=== PATIENT | male | born 1960 | race Caucasian/White ===

== ENCOUNTER 2018-03-20 07:25 | Inpatient (IN) | payer OTHER ==
[2018-03-20] MEDS ORDERED: Nitroglycerin 0.4 MG Tab.SL SL PRN (07:54)
[2018-03-20] MEDS ORDERED: Aspirin 325 MG Tab.EC PO ONE (07:54)
[2018-03-20] MEDS ORDERED: Aspirin 81 MG Tab.Chew ONE (07:56)
[2018-03-20] MEDS ORDERED: Morphine 4 MG/ML Syringe IVPUSH ONE (07:56)
[2018-03-20] MEDS: Sodium Chloride 0.9% 10 ML Syringe FLUSH PRN ×3 (08:12→09:12)
[2018-03-20 08:15] LABS: CHLORIDE,CL 101 mmol/L (98-107); SODIUM,NA 136 mmol/L (136-145)
--- NOTE | 2018-03-20 08:17 | EDM.PDOC ---
ED HPI GENERAL MEDICAL PROBLEM - General Chief Complaint: General Stated Complaint: chest pain Time Seen by Provider: 03/20/18 07:51 Source of Information: Reports: Patient, Other. Denies: Old Records ([facility] EMR. No paper hospital chart available.) History Limitations: Reports: No Limitations - History of Present Illness INITIAL COMMENTS - FREE TEXT/NARRATIVE: Patient drove himself to the emergency room via private automobile for evaluation of 03/13 retrosternal sharp, pressure type chest pain with symptoms starting after he was drinking some coffee at about 05:30 a.m. this morning. Note that he has not been taking any of his antihypertensive medications for about 1 week secondary to running out of medications with intermittent dizziness since that time. He does complain of possible additional orthopnea and exacerbation of his chest pain with movement of his right leg with history of distant DVT in that leg as below. Chest pain does also radiate into the intrascapular region and left arm with additional dyspnea and nausea without emesis shortly prior to arrival to this facility. The patient denies any heart flutter, dizziness, orthostasis, diaphoresis, paresthesias, recent decreased exercise tolerance, or any other anginal-type symptoms. No recent history of abdominal pain, diarrhea, melena, gross hematochezia, or any food intolerance, including fatty foods, etc., although he does have known chronic heartburn.. No recent history of gross hematuria, colic, or other UTI symptoms. The patient also denies any recent fever, cough, wheezing, dyspnea, etc.. He did not take any medications for symptoms prior to arrival. No history of recent headaches, visual changes, diplopia, change in mental status, or other change in neurological status. Onset: Today, Sudden Onset Date: 03/20/18 Onset Time: 05:30 Duration: Constant Location: Reports: Chest, Back, Upper Extremity, Left, Radiates to (As above). Denies: Face, Neck, Abdomen, Pelvis, Upper Extremity, Right, Lower Extremity, Left, Lower Extremity, Right Quality: Reports: Same as Previous Episode Severity: Severe Improves with: Reports: None Worsens with: Reports: Movement (Leg movement as above) Context: Reports: Other (As above). Denies: Sick Contact Associated Symptoms: Reports: Chest Pain, Nausea/Vomiting (No emesis), Shortness of Breath. Denies: Confusion, Cough, Diaphoresis, Fever/Chills, Headaches, Loss of Appetite, Malaise, Seizure, Syncope, Weakness Treatments ACCOUNT SERVICES ANALYST: Reports: Other (see below) (None) Middle Chest Pain Score (Numeric/FACES): 9 - Related Data Allergies Allergy/AdvReac Type Severity Reaction Status Date / Time nitroglycerin Allergy Rash Verified 03/20/18 07:57 [From Nitrostat] Penicillins Allergy Rash Verified 03/20/18 07:26 Home Meds: Home Meds Lisinopril 20 mg PO DAILY 03/20/18 [History] Metoprolol Tartrate [Lopressor] 50 mg PO BID 03/20/18 [History] Past Medical History HEENT History: Reports: Impaired Vision, Other (See Below). Denies: Allergic Rhinitis, Cataract, Glaucoma, Hard of Hearing, Macular Degeneration, Retinal Detachment Other HEENT History: Patient wears glasses. Nasal fracture requiring surgery at age 9 as below. Cardiovascular History: Reports: Aneurysm, Blood Clots/VTE/DVT, Heart Murmur, Hypertension, Other (See Below). Denies: Afib, Arrhythmia, Bypass, CAD, Heart Failure, High Cholesterol, MD, PTCA, PVD, Stents, Syncope Other Cardiovascular History: Thoracic aneurysm repair with probable aortic valve valvuloplasty as below with no previous history of known coronary artery disease or MD. Right leg postoperative DVT in 2007. Respiratory History: Reports: Intubation, Previous, TB, Other (See Below). Denies: Asthma, Bronchitis, Recurrent, COPD, Intubation, Difficult, PE, Pneumonia, Recurrent, Pneumothorax, Sleep Apnea Other Respiratory History: Positive tuberculosis screen in 2007 with the treatment prior to thoracic surgery as below Gastrointestinal History: Reports: Cholelithiasis, GERD. Denies: Bowel Obstruction, Celiac Disease, Chronic Constipation, Chronic Diarrhea, Colon Polyp , Diverticulosis, Fecal Incontinence, Gastritis, GI Bleed, Hepatitis, Hiatal Hernia, Inflammatory Bowel Disease, Irritable Bowel Syndrome, Jaundice, Pancreatitis, PUD Genitourinary History: Reports: BPH. Denies: Chronic Renal Insuffiency, Dialysis, Renal Calculus, STD, Urinary Incontinence, UTI, Recurrent Musculoskeletal History: Reports: Arthritis, Fracture, Osteoarthritis, Other ( See Below). Denies: Amputation, Back Pain, Chronic, Fibromyalgia, Gout, Neck Pain, Chronic, RA, SLE Other Musculoskeletal History: Right elbow dislocation and fracture secondary to dog attack injury in 2013 with concomitant right rotator cuff injury requiring surgery as below. Neurological History: Reports: Concussion, Head Trauma, Other (See Below). Denies: Alzheimers Disease, Cerebral Aneurysms, CVA, Headaches, Chronic, Migraines, MS, Neuropathy, Diabetic, Neuropathy, Peripheral, Parkinson's, Seizure, TIA, Vertigo Other Neuro History: Concussion the . Psychiatric History: Reports: Addiction, Anxiety, Depression, Other (See Below) . Denies: Abuse, Victim of, ADD, ADHD, Psych Hospitalization(s), PTSD, Suicide Attempt, Suicidal Ideation Other Psychiatric History: History of illicit drug use as below. Endocrine/Metabolic History: Reports: Obesity/BMI 30+. Denies: Diabetes, Type I , Diabetes, Type II, Diabetes Mellitus, Type 3c, Hypothyroidism, IDDM Hematologic History: Reports: Anemia, Blood Transfusion(s), Other (See Below). Denies: Iron Deficiency Other Hematologic History: Blood transfusion at time of thoracic aortic aneurysm repair as below Immunologic History: Reports: None. Denies: AIDS, HIV, SLE Oncologic (Cancer) History: Reports: None. Denies: Basal Cell Carcinoma, Colon , Hodgkin's Lymphoma, Leukemia, Lymphoma, Malignant Melanoma, Non-Hodgkin's Lymphoma, Prostate, Squamous Cell Carcinoma Dermatologic History: Reports: None. Denies: Eczema, Psoriasis - Infectious Disease History Infectious Disease History: Reports: Chicken Pox, Measles, Mumps, TB (As above) . Denies: C-Difficile, Meningitis, Mononucleosis, MRSA, Pertussis (Whooping Cough), Rheumatic Fever, Rubella, Scarlet Fever, Shingles, VRE - Past Surgical History Head Surgeries/Procedures: Reports: None HEENT Surgical History: Reports: Naso-Sinus Surgery, Oral Surgery, Other (See Below). Denies: Adenoidectomy, Cataract Surgery, Eye Surgery, Laser Surgery, LASIK, Myringotomy w Tube(s), Tonsillectomy Other HEENT Surgeries/Procedures: Complete Fleet teeth extraction at age 26 with patient only wearing upper dentures. Nasal surgery secondary to nasal fracture at about age 9. Cardiovascular Surgical History: Reports: Aneurysm, Other (See Below). Denies: AAA Repair, Carotid Endarterectomy, Coronary Artery Bypass, Pacer, Percutaneous Transluminal Angioplasty, Varicose, Vascular Surgery Other Cardiovascular Surgeries/Procedures: Thoracic aortic aneurysm repair with concomitant aortic valvuloplasty in 2007. Respiratory Surgical History: Reports: None. Denies: Thoracentesis GI Surgical History: Reports: Cholecystectomy, Colonoscopy, Other (See Below). Denies: Appendectomy, EGD, Hernia, Inguinal, Hernia Repair/Other, Polypectomy Other GI Surgeries/Procedures: Laparoscopic cholecystectomy in 2010. Colonoscopy in 2011. Male Surgical History: Reports: Circumcision, Other (See Below). Denies: TURP-Transurethral Resection of Prostate, Vasectomy Other Male Surgeries/Procedures: Circumcision as an infant. Endocrine Surgical History: Reports: None. Denies: Thyroid Biopsy Neurological Surgical History: Denies: C-Spine, Discectomy, Laminectomy, Lumbar Spine, Sacral Spine, Spinal Fusion, Thoracic Spine, Vertebroplasty Musculoskeletal Surgical History: Reports: Shoulder Surgery, Other (See Below). Denies: Carpal Tunnel, Ganglion Cyst, Joint Replacement, ORIF Other Musculoskeletal Surgeries/Procedures:: Right rotator cuff repair in 2013. Oncologic Surgical History: Reports: None Dermatological Surgical History: Reports: None - Past Imaging History Past Imaging History: Reports: Angiography (Probable heart catheterization in 2007 at time of the aortic aneurysm repair) Social & Family History - Family History HEENT: Reports: None. Denies: Allergic Rhinitis, Glaucoma, Macular Degeneration , Retinal Detachment Cardiac: Reports: Arrhythmia, Bypass, CAD, Heart Failure, Heart Murmur, Hypertension, MD, Other (See Below). Denies: Afib, Aneurysm, Blood Clots/VTE/ DVT, High Cholesterol, PVD/COD, Syncope Other Cardiac Family History: Mother with cardiomegaly, CHF with fatal MD at age 69. Father with history of PTCA/stent 2 at age 54 with concomitant MD. Brother with pacemaker secondary to bradycardia at age 60. Brother with history of MD 2 initially at age 35 with history of PTCA/stents and subsequent CABG and probable valve replacement at about age 50. Sister with hypertension. Respiratory: Reports: COPD, Other (See Below). Denies: Asthma, PE, Pneumothorax , Sleep Apnea Other Respiratory Family Hisory: Sister with COPD with history of tobacco use. GI: Reports: Hepatitis, Other (See Below). Denies: Celiac Disease, Cholelithiasis, Colon Polyps, GERD, GI bleed, Inflammatory Bowel Disease, Irritable Bowel Syndrome, Pancreatitis, PUD Other GI Family History: Brother with history of hepatitis. : Reports: Diabetic Nephropathy, Dialysis, Renal Disease/Insufficiency, Other (See Below). Denies: Renal Calculus Other Family History: Mother with history of diabetic nephropathy including dialysis. OBGYN: Reports: None. Denies: Endometriosis, Recurrent Spontaneous Musculoskeletal: Reports: Arthritis, Osteoarthritis, Other (See Below). Denies : Gout, RA, SLE Other Musculoskeletal Family History: Parents with arthritis. Neurological: Reports: Neuropathy, Diabetic, Neuropathy, Peripheral, Other (See Below). Denies: Alzheimers Disease, Cerebral Aneurysms, CVA, Dementia, Migraines, MS, Parkinson's, Seizure, TIA Other Neurological Family History: Mother with diabetic neuropathy. Psychiatric: Denies: Abuse, Victim of, ADD, ADHD, Anxiety, Depression, Psych Hospitalization(s), PTSD, Suicide Attempt Endocrine/Metabolic: Reports: Diabetes, type II, IDDM, Other (See Below). Denies: Diabetes, Type I, Diabetes Mellitus, Type 3c, Hypothyroidism Other Endocrine/Metabolic Family History: Brother and mother with IDDM. Hematologic: Reports: None. Denies: Anemia Immunologic: Reports: None. Denies: AIDS, HIV, SLE Dermatologic: Reports: None. Denies: Eczema, Psoriasis Oncologic: Reports: Colon, Other (See Below). Denies: Hodgkin's Lymphoma, Leukemia, Lymphoma, Non-Hodgkin's Lymphoma, Prostate, Skin Other Oncologic Family History: Father with fatal unknown type of intestinal cancer at age 67 - Tobacco Use Smoking Status *Q: Current Every Day Smoker Tobacco Use Within Last Twelve Months: Cigarettes Years of Tobacco use: 45 Packs/Tins Daily: 1 Used Tobacco, but Quit: No Month/Year Tobacco Last Used: Ordered smoking at age 12 with maximum use of 2 packs per day. Smoking Cessation Information Provided To Patient: Yes Second Hand Smoke Exposure: No Second Hand Smoke Education Provided: No - Caffeine Use Caffeine Use: Reports: Coffee (4 cups per day), Soda (12 sodas per day.), Tea (2 3 glasses per week.). Denies: Energy Drinks - Alcohol Use Alcohol Use History: Yes Days Per Week of Alcohol Use: 1 Number of Drinks Per Day: 12 Number of Drinks Per Day Comment: Usually beer. DWI in the with no previous known alcohol abuse, treatment, etc. Total Drinks Per Week: 12 Date of Last Drink: 03/16/18 Alcohol Use in Last Twelve Months: Yes Alcohol Use Frequency: Binges - Recreational Drug Use Recreational Drug Type: Reports: Amphetamines (Speed) (As below), Cocaine (In the early 1999s with no IV drug use.), Marijuana/Hashish (Marijuana abuse as a teenager.), Methamphetamine (Between ages 51 and 55). Denies: Heroin, Inhalants (Glues, Solvents, Aerosols), LSD (Acid), Morphine, Oxycodone - Living Situation & Occupation Living situation: Reports: (1988, 3 children), Alone Occupation: Employed ([employer]) ED ROS GENERAL - Review of Systems Review Of Systems: ROS reveals no pertinent complaints other than HPI. ED EXAM, GENERAL - Physical Exam Exam: See Below Exam Limited By: No Limitations General Appearance: Alert, WD/WN, No Apparent Distress Eye Exam: Bilateral Eye: EOMI, Normal Inspection (Patient wears glasses, no nystagmus), PERRL Ears: Normal External Exam, Normal Canal, Hearing Grossly Normal, Normal TMs Nose: Normal Inspection, Normal Mucosa, No Blood Throat/Mouth: Normal Lips, Normal Oropharynx, Normal Voice, No Airway Compromise. No: Normal Teeth (Complete upper dentures with patient not normally having lower dentures. Complete absent dentition), Dysphagia, Perioral Cyanosis Head: Atraumatic, Normocephalic. No: Facial Swelling, Facial Tenderness, Sinus Tenderness Neck: Supple, Non-Tender, Full Range of Motion, Carotid Bruit (Mild bilateral carotid bruits versus transmitted heart sounds). No: Lymphadenopathy (L), Lymphadenopathy (R), Thyromegaly Respiratory/Chest: No Respiratory Distress, Lungs Clear, Normal Breath Sounds, No Accessory Muscle Use, Chest Non-Tender. No: Pleural Rub, Retractions Cardiovascular: Normal Peripheral Pulses, Regular Rate, Rhythm, No Edema, No Gallop, No JVD, No Rub, Systolic Murmur (2/6 KINSEY of the aortic valve). No: Gallop/S3, Gallop/S4 Peripheral Pulses: 2+: Radial (L), Radial (R), Dorsalis Pedis (L), Dorsalis Pedis (R) GI/Abdominal: Normal Bowel Sounds, Soft, Non-Tender, No Organomegaly, No Distention, No Abnormal Bruit, No Mass, Pelvis Stable, Other (obese). No: Guarding (Male) Exam: Deferred Rectal (Males) Exam: Deferred Back Exam: Normal Inspection, Full Range of Motion. No: CVA Tenderness (L), CVA Tenderness (R), Muscle Spasm Extremities: Normal Inspection, Normal Range of Motion, Non-Tender, No Pedal Edema, Normal Capillary Refill. No: Nadira's Sign Neurological: Alert, Oriented, CN II-XII Intact, Normal Cognition, Normal Gait, Normal Reflexes (Negative Babinski's), No Motor/Sensory Deficits Psychiatric: Anxious (Mild). No: Depressed Mood Skin Exam: Warm, Dry, Intact, Normal Color, No Rash. No: Diaphoretic, Ecchymosis, Lymphangitis, Petechiae, Wound/Incision Lymphatic: No Adenopathy EKG INTERPRETATION EKG Date: 03/20/18 Time: 07:28 Rhythm: NSR Rate (Beats/Min): 81 Tie Siding: Normal (Left versus neutral cardiac axis) P-Wave: Enlarged (Moderate diffuse biphasic P waves with extreme poor R-wave progression in the anterior leads) QRS: Normal (QRS interval 0.09 seconds with T-wave inversion in lead V1) ST-T: Normal QT: Normal GA/PQ Interval: 0.18 seconds Comparison: NA - No Prior EKG EKG Interpretation Comments: 1. No acute ischemic changes 2. Left atrial enlargement 3. Borderline left ventricular hypertrophy by EKG Course - Vital Signs Last Recorded V/S: Last Vital Signs Temp 37.0 C 03/20/18 07:49 Pulse 75 03/20/18 09:53 Resp 23 H 03/20/18 09:53 BP 130/105 H 03/20/18 09:53 Pulse Ox 99 03/20/18 09:53 Vital Signs - 24 hr 03/20/18 03/20/18 03/20/18 07:25 07:42 07:49 Temperature [ 36.8 C Oral] Temperature [ 37.0 C Temporal] Pulse, Peripheral Pulse, 81 82 78 Peripheral [ Right Pulse Oximetry] Respiratory 16 22 H 20 Rate Blood Pressure Blood Pressure 146/119 H 146/119 H 157/103 H [Left Upper Arm ] O2 Sat by Pulse 100 100 100 Oximetry 03/20/18 03/20/18 03/20/18 08:00 08:16 08:27 Temperature [ Oral] Temperature [ Temporal] Pulse, 73 Peripheral Pulse, 82 Peripheral [ Right Pulse Oximetry] Respiratory 16 Rate Blood Pressure 157/117 H Blood Pressure 154/134 H 160/140 H [Left Upper Arm ] O2 Sat by Pulse 99 Oximetry 03/20/18 03/20/18 03/20/18 08:30 08:37 08:55 Temperature [ Oral] Temperature [ Temporal] Pulse, 73 Peripheral Pulse, 73 70 Peripheral [ Right Pulse Oximetry] Respiratory 21 H 17 Rate Blood Pressure 157/117 H 161/98 H Blood Pressure 168/107 H 158/113 H [Left Upper Arm ] O2 Sat by Pulse 100 100 Oximetry 03/20/18 03/20/18 03/20/18 09:15 09:30 09:51 Temperature [ Oral] Temperature [ Temporal] Pulse, Peripheral Pulse, 74 76 72 Peripheral [ Right Pulse Oximetry] Respiratory 17 18 17 Rate Blood Pressure Blood Pressure 169/107 H 147/93 H 174/99 H [Left Upper Arm ] O2 Sat by Pulse 100 99 100 Oximetry 03/20/18 09:53 Temperature [ Oral] Temperature [ Temporal] Pulse, Peripheral Pulse, 75 Peripheral [ Right Pulse Oximetry] Respiratory 23 H Rate Blood Pressure Blood Pressure 130/105 H [Left Upper Arm ] O2 Sat by Pulse 99 Oximetry - Orders/Labs/Meds Orders: Active Orders 24 hr Category Date Time Status EKG Documentation Completion [RC] ASDIRECTED Care 03/20/18 07:52 Active Chest 1V Frontal [CR] Stat Exams 03/20/18 07:52 Taken Chest PE [Ang Chest] [CT] Stat Exams 03/20/18 08:24 Taken Nitroglycerin [Nitrostat] Med 03/20/18 07:54 Active 0.4 mg SL Q5M PRN Sodium Chloride 0.9% [Saline Flush] Med 03/20/18 07:52 Active 10 ml FLUSH ASDIRECTED PRN Obtain Past Medical Record [OM.PC] Routine Oth 03/20/18 08:20 Active Saline Lock Insert [OM.PC] Routine Oth 03/20/18 07:52 Ordered Medication Orders Nitroglycerin (Nitrostat) 0.4 mg SL Q5M PRN PRN Reason: Chest Pain Sodium Chloride (Saline Flush) 10 ml FLUSH ASDIRECTED PRN PRN Reason: Keep Vein Open Last Admin: 03/20/18 09:12 Dose: 10 ml Admin: 03/20/18 08:31 Dose: 10 ml Admin: 03/20/18 08:12 Dose: 10 ml Labs: Laboratory Tests 03/20/18 03/20/18 03/20/18 Range/Units 07:50 07:50 07:55 WBC 6.6 (4.0-10.2) K/uL RBC 5.22 (4.33-5.41) M/uL Hgb 16.7 (13.1-16.8) g/dL Hct 46.3 (39.0-49.0) % MCV 88.7 (84.0-98.0) fL MCH 32.0 (28.2-33.3) pg MCHC 36.1 H (31.7-36.0) g/dL RDW 12.5 (11.2-14.1) % Plt Count 207 (150-350) K/uL Neut % (Auto) 59.1 (45.0-80.0) % Lymph % (Auto) 26.8 (10.0-50.0) % Daggett % (Auto) 10.0 (2.0-14.0) % Eos % (Auto) 3.2 (0.0-5.0) % Baso % (Auto) 0.9 (0.0-2.0) % Neut # (Auto) 3.90 (1.40-7.00) K/uL Lymph # (Auto) 1.77 (0.50-3.50) K/uL Daggett # (Auto) 0.66 (0.00-1.00) K/uL Eos # (Auto) 0.21 (0.00-0.50) K/uL Baso # (Auto) 0.06 (0.00-0.20) K/uL PT (9.8-11.7) SEC INR APTT (22.1-29.8) SEC D-Dimer, Quantitative 468 H (0-400) ng/mL Sodium 136 (136-145) mmol/L Potassium 4.4 (3.5-5.1) mmol/L Chloride 101 (98-107) mmol/L Carbon Dioxide 27.4 (21.0-32.0) mmol/L BUN 8 (7-18) mg/dL Creatinine 0.76 (0.51-1.17) mg/dL Est Cr Clr Drug Dosing 101.25 mL/min Estimated GFR (MDRD) > 60 mL/min Glucose 104 (74-106) mg/dL Lactic Acid (0.4-2.0) mmol/L Calcium 9.2 (8.5-10.1) mg/dL Total Bilirubin 0.9 (0.2-1.0) mg/dL AST 28 (15-37) U/L ALT 33 (12-78) U/L Alkaline Phosphatase 86 (46-116) IU/L Creatine Kinase (26-308) U/L Creatine Kinase Index (0.0-2.5) % CK-MB (CK-2) (0.00-3.60) ng/mL Troponin I 0.000 (0.000-0.056) ng/mL NT-Pro-B Natriuret Pep (0-125) pg/mL Total Protein 7.5 (6.4-8.2) g/dL Albumin 3.7 (3.4-5.0) g/dL TSH, Ultra Sensitive (0.358-3.740) mIU/mL 03/20/18 03/20/18 03/20/18 Range/Units 07:55 07:55 07:55 WBC (4.0-10.2) K/uL RBC (4.33-5.41) M/uL Hgb (13.1-16.8) g/dL Hct (39.0-49.0) % MCV (84.0-98.0) fL MCH (28.2-33.3) pg MCHC (31.7-36.0) g/dL RDW (11.2-14.1) % Plt Count (150-350) K/uL Neut % (Auto) (45.0-80.0) % Lymph % (Auto) (10.0-50.0) % Daggett % (Auto) (2.0-14.0) % Eos % (Auto) (0.0-5.0) % Baso % (Auto) (0.0-2.0) % Neut # (Auto) (1.40-7.00) K/uL Lymph # (Auto) (0.50-3.50) K/uL Daggett # (Auto) (0.00-1.00) K/uL Eos # (Auto) (0.00-0.50) K/uL Baso # (Auto) (0.00-0.20) K/uL PT 9.9 (9.8-11.7) SEC INR 0.9 APTT 25.0 (22.1-29.8) SEC D-Dimer, Quantitative (0-400) ng/mL Sodium (136-145) mmol/L Potassium (3.5-5.1) mmol/L Chloride (98-107) mmol/L Carbon Dioxide (21.0-32.0) mmol/L BUN (7-18) mg/dL Creatinine (0.51-1.17) mg/dL Est Cr Clr Drug Dosing mL/min Estimated GFR (MDRD) mL/min Glucose (74-106) mg/dL Lactic Acid 1.7 (0.4-2.0) mmol/L Calcium (8.5-10.1) mg/dL Total Bilirubin (0.2-1.0) mg/dL AST (15-37) U/L ALT (12-78) U/L Alkaline Phosphatase (46-116) IU/L Creatine Kinase 81 (26-308) U/L Creatine Kinase Index 1.5 (0.0-2.5) % CK-MB (CK-2) 1.20 (0.00-3.60) ng/mL Troponin I (0.000-0.056) ng/mL NT-Pro-B Natriuret Pep 220 H (0-125) pg/mL Total Protein (6.4-8.2) g/dL Albumin (3.4-5.0) g/dL TSH, Ultra Sensitive (0.358-3.740) mIU/mL 03/20/18 Range/Units 07:55 WBC (4.0-10.2) K/uL RBC (4.33-5.41) M/uL Hgb (13.1-16.8) g/dL Hct (39.0-49.0) % MCV (84.0-98.0) fL MCH (28.2-33.3) pg MCHC (31.7-36.0) g/dL RDW (11.2-14.1) % Plt Count (150-350) K/uL Neut % (Auto) (45.0-80.0) % Lymph % (Auto) (10.0-50.0) % Daggett % (Auto) (2.0-14.0) % Eos % (Auto) (0.0-5.0) % Baso % (Auto) (0.0-2.0) % Neut # (Auto) (1.40-7.00) K/uL Lymph # (Auto) (0.50-3.50) K/uL Daggett # (Auto) (0.00-1.00) K/uL Eos # (Auto) (0.00-0.50) K/uL Baso # (Auto) (0.00-0.20) K/uL PT (9.8-11.7) SEC INR APTT (22.1-29.8) SEC D-Dimer, Quantitative (0-400) ng/mL Sodium (136-145) mmol/L Potassium (3.5-5.1) mmol/L Chloride (98-107) mmol/L Carbon Dioxide (21.0-32.0) mmol/L BUN (7-18) mg/dL Creatinine (0.51-1.17) mg/dL Est Cr Clr Drug Dosing mL/min Estimated GFR (MDRD) mL/min Glucose (74-106) mg/dL Lactic Acid (0.4-2.0) mmol/L Calcium (8.5-10.1) mg/dL Total Bilirubin (0.2-1.0) mg/dL AST (15-37) U/L ALT (12-78) U/L Alkaline Phosphatase (46-116) IU/L Creatine Kinase (26-308) U/L Creatine Kinase Index (0.0-2.5) % CK-MB (CK-2) (0.00-3.60) ng/mL Troponin I (0.000-0.056) ng/mL NT-Pro-B Natriuret Pep (0-125) pg/mL Total Protein (6.4-8.2) g/dL Albumin (3.4-5.0) g/dL TSH, Ultra Sensitive 3.521 (0.358-3.740) mIU/mL Meds: Medications Generic Name Dose Route Start Last Admin Trade Name Freq PRN Reason Stop Dose Admin Nitroglycerin 0.4 mg 03/20/18 07:54 Nitrostat SL Q5M PRN Chest Pain Sodium Chloride 10 ml 03/20/18 07:52 03/20/18 09:12 Saline Flush FLUSH 10 ml ASDIRECTED PRN Administration Keep Vein Open Discontinued Medications Generic Name Dose Route Start Last Admin Trade Name Christy PRN Reason Stop Dose Admin Al Hydroxide/Mg Hydroxide 30 ml 03/20/18 09:25 03/20/18 09:42 Gi Cocktail PO 03/20/18 09:26 30 ml ONETIME ONE Administration Aspirin 325 mg 03/20/18 07:54 03/20/18 08:32 Ecotrin PO 03/20/18 07:55 Not Given ONETIME ONE Aspirin Confirm 03/20/18 07:56 03/20/18 08:07 Aspirin Administered 03/20/18 07:57 324 mg Dose Administration 324 mg .ROUTE .STK-MED ONE Enalaprilat 1.25 mg 03/20/18 08:19 03/20/18 08:30 Vasotec Iv IVPUSH 03/20/18 08:20 1.25 mg ONETIME ONE Administration Famotidine 40 mg 03/20/18 09:03 03/20/18 09:12 Pepcid IVPUSH 03/20/18 09:04 40 mg ONETIME ONE Administration Fentanyl 100 mcg 03/20/18 08:35 03/20/18 08:39 Sublimaze IVPUSH 03/20/18 08:36 100 mcg ONETIME ONE Administration Fentanyl 100 mcg 03/20/18 09:23 03/20/18 09:27 Sublimaze IVPUSH 03/20/18 09:24 100 mcg ONETIME ONE Administration Iopamidol 100 ml 03/20/18 09:00 03/20/18 08:55 Isovue-370 (76%) IVPUSH 03/20/18 09:01 100 ml ONETIME ONE Administration Labetalol HCl 10 mg 03/20/18 08:39 03/20/18 08:44 Normodyne IVPUSH 03/20/18 08:40 10 mg ONETIME ONE Administration Protocol Labetalol HCl 10 mg 03/20/18 09:24 03/20/18 09:28 Normodyne IVPUSH 03/20/18 09:25 10 mg ONETIME ONE Administration Protocol Metoprolol Tartrate 2.5 mg 03/20/18 08:19 03/20/18 08:27 Lopressor IVPUSH 03/20/18 08:20 2.5 mg ONETIME ONE Administration Metoprolol Tartrate 25 mg 03/20/18 08:34 03/20/18 08:37 Lopressor PO 03/20/18 08:35 25 mg ONETIME ONE Administration Morphine Sulfate 4 mg 03/20/18 07:56 03/20/18 08:11 Morphine IVPUSH 03/20/18 07:57 4 mg ONETIME ONE Administration Ondansetron HCl 4 mg 03/20/18 08:34 03/20/18 08:39 Zofran IVPUSH 03/20/18 08:35 4 mg ONETIME ONE Administration Pantoprazole Sodium 40 mg 03/20/18 09:25 03/20/18 09:42 Protonix Iv IVPUSH 03/20/18 09:26 40 mg ONETIME ONE Administration Ticagrelor 180 mg 03/20/18 08:20 03/20/18 08:23 Brilinta PO 03/20/18 08:21 180 mg ONETIME ONE Administration - Radiology Interpretation Free Text/Narrative:: monitor worker showed initial sinus rhythm in the 80s with no ectopy or arrhythmia. Heart rate in the 70s to 80s at time of admission. Chest x-ray, portable, shows evidence of mild to moderate cardiomegaly with probable moderate COPD with pulmonary hypertension versus mild centralized CHF. Poor inspiratory film. No pneumothorax or significant pulmonary infiltrates. Somewhat Prominent proximal aortic arch but no direct evidence of aneurysm. Note status post medial sternotomy. Telephone consultation at 09:29 hours with the radiology department at [facility] with preliminary verbal report of CTA of the chest. No significant abnormal findings with no evidence of PE, aortic dissection, etc. CT Results Date: 03/20/18 CT Results Time: 09:29 Departure - Departure Time of Disposition: 10:00 Disposition: Refer to Observation Condition: Fair Clinical Impression: Peptic reflux disease, Tobacco abuse counseling, Mixed anxiety depressive disorder Chest pain Qualifiers: Chest pain type: precordial pain Qualified Code(s): R07.2 - Precordial pain Hypertension Qualifiers: Hypertension type: essential hypertension Qualified Code(s): I10 - Essential ( primary) hypertension Thoracic aortic aneurysm Qualifiers: Presence of rupture: without rupture Qualified Code(s): I71.2 - Thoracic aortic aneurysm, without rupture Osteoarthritis Qualifiers: Osteoarthritis location: multiple joints Osteoarthritis type: primary Qualified Code(s): M15.0 - Primary generalized (osteo)arthritis Aortic valve stenosis Qualifiers: Cardiac valve disease etiology: nonrheumatic Qualified Code(s): I35.0 - Nonrheumatic aortic (valve) stenosis CHF (congestive heart failure) Qualifiers: Heart failure type: unspecified Heart failure chronicity: unspecified Qualified Code(s): I50.9 - Heart failure, unspecified COPD (chronic obstructive pulmonary disease) Qualifiers: COPD type: emphysema Emphysema type: panlobular Qualified Code(s): J43.1 - Panlobular emphysema - Discharge Information *PRESCRIPTION DRUG MONITORING PROGRAM REVIEWED*: Not Applicable *COPY OF PRESCRIPTION DRUG MONITORING REPORT IN PATIENT FELICITY: Not Applicable - Problem List & Annotations (1) Chest pain SNOMED Code(s): 28153805 Code(s): R07.9 - CHEST PAIN, UNSPECIFIED Status: Acute Priority: High Current Visit: No Onset Date: 03/20/18 Annotation/Comment:: Initial evaluation by [facility] physician, Dr. Brewer, with verbal report given to me as I assumed patient care. Note no written documentation by [facility] physician as above. Chest pain protocol initiated on patient's arrival to the emergency room. Note previous distant thoracic aortic aneurysm repair with negative CTA of the chest for PE and/or changes in his thoracic aneurysm repair , including dissection, etc.. Initiate standard rule out MD orders. Pain somewhat difficult to control in the emergency room with multiple medications required as above. Cardiology consultation, hospital transfer, etc. depending on his clinical course. Qualifiers: Chest pain type: precordial pain Qualified Code(s): R07.2 - Precordial pain (2) Hypertension SNOMED Code(s): 21366731 Code(s): I10 - ESSENTIAL (PRIMARY) HYPERTENSION Status: Acute Priority: High Current Visit: No Annotation/Comment:: Borderline hypertensive crisis prior to arrival to this facility with aggressive IV therapy required as above. Blood pressures improved at time of admission. Note medication noncompliance in the last week as above with medication compliance strongly encouraged. No recent illicit drug use, including methamphetamine, etc. Decreased caffeine intake discussed and strongly advised. Qualifiers: Hypertension type: essential hypertension Qualified Code(s): I10 - Essential (primary) hypertension (3) D-dimer, elevated SNOMED Code(s): 237429877 Code(s): R79.89 - OTHER SPECIFIED ABNORMAL FINDINGS OF BLOOD CHEMISTRY Status: Acute Priority: High Current Visit: No Onset Date: 03/20/18 Annotation/Comment:: Mild d-dimer elevation with negative CTA of the chest as above. Venous Doppler studies to be conducted during this hospitalization. Initiate Lovenox with caution secondary to his peptic reflux disease as above. Repeat blood work in the a.m. No direct clinical evidence of DVT with negative Homans sign of the right leg. (4) Aortic valve stenosis SNOMED Code(s): 31441267 Code(s): I35.0 - NONRHEUMATIC AORTIC (VALVE) STENOSIS Status: Chronic Priority: Medium Current Visit: No Annotation/Comment:: Note status post aortic valvuloplasty in 2007 as above. Echocardiogram tomorrow if possible otherwise on an outpatient basis. Qualifiers: Cardiac valve disease etiology: nonrheumatic Qualified Code(s): I35.0 - Nonrheumatic aortic (valve) stenosis (5) CHF (congestive heart failure) SNOMED Code(s): 35888054 Code(s): I50.9 - HEART FAILURE, UNSPECIFIED Status: Acute Priority: Medium Current Visit: No Onset Date: 03/20/18 Annotation/Comment:: Mild BNP elevation and borderline CHF by chest x-ray. Initiate low-dose IV Lasix therapy. Echocardiogram as above. Qualifiers: Heart failure type: unspecified Heart failure chronicity: unspecified Qualified Code(s): I50.9 - Heart failure, unspecified (6) COPD (chronic obstructive pulmonary disease) SNOMED Code(s): 49660489 Code(s): J44.9 - CHRONIC OBSTRUCTIVE PULMONARY DISEASE, UNSPECIFIED Status : Chronic Priority: Medium Current Visit: No Annotation/Comment:: COPD by chest x-ray with history of tobacco use. Consider PFTs once his cardiac status has been determined. Qualifiers: COPD type: emphysema Emphysema type: panlobular Qualified Code(s): J43.1 - Panlobular emphysema (7) Mixed anxiety depressive disorder SNOMED Code(s): 468879876 Code(s): F41.8 - OTHER SPECIFIED ANXIETY DISORDERS Status: Chronic Priority: Medium Current Visit: No Annotation/Comment:: Mild to moderate control based on today's clinical exam. Consider medical therapy depending on clinical course. Note previous history of illicit drug use in moderate current alcohol intake. (8) Osteoarthritis SNOMED Code(s): 261224774 Code(s): M19.90 - UNSPECIFIED OSTEOARTHRITIS, UNSPECIFIED SITE Status: Chronic Priority: Medium Current Visit: No Annotation/Comment:: Stable by patient history with exception of persistent discomfort in hands and right leg. Qualifiers: Osteoarthritis location: multiple joints Osteoarthritis type: primary Qualified Code(s): M15.0 - Primary generalized (osteo)arthritis (9) Peptic reflux disease SNOMED Code(s): 424298365 Code(s): K21.9 - GASTRO-ESOPHAGEAL REFLUX DISEASE WITHOUT ESOPHAGITIS Status: Chronic Priority: Medium Current Visit: No Annotation/Comment:: Aggressive treatment in the emergency room as above. Consider EGD depending on workup for his cardiac disease. H. pylori stool antigen collection during this hospitalization. (10) Thoracic aortic aneurysm SNOMED Code(s): 021669958 Code(s): I71.2 - THORACIC AORTIC ANEURYSM, WITHOUT RUPTURE Status: Chronic Priority: High Current Visit: No Annotation/Comment:: No evidence of rupture by CTA of the chest as above. Qualifiers: Presence of rupture: without rupture Qualified Code(s): I71.2 - Thoracic aortic aneurysm, without rupture (11) Tobacco abuse counseling SNOMED Code(s): 848952560, 049096704, 434330902 Code(s): Z71.6 - TOBACCO ABUSE COUNSELING Status: Chronic Priority: Medium Current Visit: No Annotation/Comment:: Tobacco cessation information to be provided at discharge. Initiate Nicoderm patch during this hospitalization. - Problem List Review Problem List Initiated/Reviewed/Updated: Yes - My Orders Last 24 Hours: My Active Orders 03/20/18 08:20 Obtain Past Medical Record [OM.PC] Routine 03/20/18 08:24 Chest PE [Ang Chest] [CT] Stat - Assessment/Plan Admission H&P: Please use this note as an admission H&P Last 24 Hours: My Active Orders 03/20/18 08:20 Obtain Past Medical Record [OM.PC] Routine 09/17/18 08:24 Chest PE [Ang Chest] [CT] Stat Assessment:: As above Plan: As above. Extensive precautions were given to the patient, who is in agreement with the treatment plan. The patient's condition is stable enough for observation status and general supervision.
[2018-03-20] MEDS ORDERED: Enalaprilat 1.25 MG/ML SDV IVPUSH ONE (08:19)
[2018-03-20] MEDS ORDERED: Metoprolol Tartrate 5 MG/5 ML SDV IVPUSH ONE (08:19)
[2018-03-20] MEDS ORDERED: Ticagrelor 90 MG Tab PO ONE (08:20)
[2018-03-20] MEDS ORDERED: Metoprolol Tartrate 50 MG Tab PO ONE (08:34)
[2018-03-20] MEDS ORDERED: Ondansetron 4 MG/2 ML SDV IVPUSH ONE (08:34)
[2018-03-20] MEDS ORDERED: fentaNYL 100 MCG/2 ML SDV IVPUSH ONE ×2 (08:35→09:23)
[2018-03-20] MEDS ORDERED: Labetalol 20 MG/4 ML Syringe IVPUSH ONE ×2 (08:39→09:24)
[2018-03-20] MEDS ORDERED: Iopamidol 755 Mg/ML 100 ML Bottle IVPUSH ONE (09:00)
[2018-03-20] MEDS ORDERED: Famotidine 20 MG/2 ML SDV IVPUSH ONE (09:03)
[2018-03-20] MEDS ORDERED: Pantoprazole 40 MG Vial IVPUSH ONE (09:25)
[2018-03-20] MEDS ORDERED: GI Cocktail Oral Solution 30 ML PO ONE (09:25)
[2018-03-20] MEDS ORDERED: Acetaminophen 325 MG Tab PO PRN (10:00)
[2018-03-20] MEDS ORDERED: Sodium Chloride 0.9% 10 ML Syringe FLUSH PRN (10:10)
[2018-03-20] MEDS ORDERED: Temazepam 15 MG Cap PO PRN (10:10)
[2018-03-20] MEDS: Nicotine 21 MG/24 Hr Patch TRDERM SCH (10:41)
[2018-03-20] MEDS: Enoxaparin 100 MG/1 ML Syringe SUBCUT SCH ×2 (10:42→21:10)
[2018-03-20] MEDS: Potassium Chloride 20 MEQ Tab.ER PO SCH (10:43)
[2018-03-20] MEDS: Lisinopril 20 MG Tab PO SCH ×2 (10:44→17:32)
[2018-03-20] MEDS: LORazepam 1 MG Tab PO PRN ×2 (11:04→21:10)
[2018-03-20] MEDS ORDERED: methylPREDNISolone Sodium Succinate 125 MG/2 ML SDV IVPUSH ONE (12:41)
[2018-03-20] MEDS ORDERED: diphenhydrAMINE 50 MG/ML SDV IVPUSH ONE (12:41)
[2018-03-20] MEDS ORDERED: Nitroglycerin 0.4 MG Tab.SL SL STA (12:42)
[2018-03-20] MEDS ORDERED: Nitroglycerin/D5W 25 MG/250 ML BOTTLE IV SCH (12:45)
[2018-03-20] MEDS ORDERED: Sodium Chloride 0.9% 1,000 ML IV SCH (12:45)
[2018-03-20] MEDS: Furosemide 40 MG/4 ML VIAL IVPUSH SCH (12:51)
--- NOTE | 2018-03-20 13:05 | PCM.SN ---
- Free Text/Narrative Note: Patient is once again having some moderate breakthrough retrosternal sharp 7/10 chest pressure, which does continue to radiate into the back. Stat repeat EKG at 12:47 PM shows no change from EKG earlier this morning with nonspecific ST changes in lead aVL and possible threatening T-wave inversion in that lead. Note PA interval also somewhat increased at this time to 0.20 seconds representing a borderline first-degree AV block likely secondary to IV metoprolol and Normodyne with additional oral metoprolol given in the emergency room. His physical exam is stable from admission, although somewhat mild progression of his systolic aortic murmur to 2-3/6 at this time. Anxiety component of his symptoms with no improvement with oral dose of Ativan earlier this morning. Various therapeutic options were discussed with the patient, who now does agree to recommended nitroglycerin therapy with premedication with 50 mg IV Benadryl and 125 mg of IV Solu-Medrol. Initial sublingual nitroglycerin with additional immediate initiation of sublingual nitroglycerin infusion initially at 10 mcg/m. 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 His blood pressure has also improved with current medical therapy. Patient did not wish to be transferred to [facility]. Excellent results with sublingual nitroglycerin tablet and subsequent nitroglycerin infusion. Low threshold for cardiology referral with probable Cardiolite stress test on an outpatient basis. Note subcutaneous Lovenox therapy already initiated on admission. Negative cardiac enzymes 2 with additional set to be conducted at about 19:00 hours this evening.
[2018-03-20] MEDS: Metoprolol Tartrate 50 MG Tab PO SCH (17:32)
[2018-03-20] MEDS ORDERED: diphenhydrAMINE 25 MG Cap PO PRN (20:48)
[2018-03-21 07:49] LABS: CHLORIDE,CL 102 mmol/L (98-107); SODIUM,NA 138 mmol/L (136-145)
[2018-03-21] MEDS: Lisinopril 20 MG Tab PO SCH ×2 (08:24→18:55)
[2018-03-21] MEDS: Metoprolol Tartrate 50 MG Tab PO SCH ×2 (08:25→18:54)
[2018-03-21] MEDS: Potassium Chloride 20 MEQ Tab.ER PO SCH (08:25)
[2018-03-21] MEDS: Nicotine 21 MG/24 Hr Patch TRDERM SCH (08:26)
[2018-03-21] MEDS ORDERED: Citalopram 20 MG Tab PO SCH (09:08)
--- NOTE | 2018-03-21 09:14 | PCM.PN ---
- General Info Date of Service: 03/21/18 Functional Status: Reports: Pain Controlled, Tolerating Diet, Ambulating, Urinating. Denies: New Symptoms, Incentive Spirometry Pain Score: 3 - Review of Systems General: Reports: No Symptoms. Denies: Fever, Weakness, Fatigue, Malaise, Chills, Night Sweats, Appetite (Tolerated diet yesterday well and wants to eat breakfast this morning with excellent appetite ) HEENT: Reports: Headaches (Mild secondary to nitroglycerin drip). Denies: Ear Pain, Eye Pain, Post Nasal Drip, Sinus Congestion, Sore Throat, Visual Changes Pulmonary: Reports: No Symptoms. Denies: Shortness of Breath, Pleuritic Chest Pain, Cough, Sputum, Wheezing Cardiovascular: Reports: Chest Pain (Nonspecific persistent 25/04 bilateral anterior chest pain). Denies: Palpitations, Dyspnea on Exertion, Orthopnea, PND , Edema, Lightheadedness Gastrointestinal: Reports: No Symptoms, Other (No bowel movement to this point) . Denies: Abdominal Pain, Constipation, Decreased Appetite, Diarrhea, Difficulty Swallowing, Flatus, Hematochezia, Melena, Nausea, Vomiting Genitourinary: Reports: No Symptoms. Denies: Dysuria, Frequency, Burning, Pain , Urgency, Incontinence, Hematuria, Retention, Flank Pain Musculoskeletal: Reports: No Symptoms. Denies: Neck Pain, Shoulder Pain, Arm Pain, Hand Pain, Back Pain, Leg Pain Skin: Reports: Bruising (Minimal bruising Lovenox injection sites), Pruritis ( Pruritus yesterday evening possibly secondary to nitroglycerin infusion with oral Benadryl taken yesterday evening and no pruritus this morning). Denies: Diaphoresis, Rash Neurological: Reports: Headache. Denies: Confusion, Dizziness, Numbness, Paresthesia, Tingling, Weakness Psychiatric: Reports: Depression (Mild), Anxiety (Moderate). Denies: Confusion , Agitation, Cravings, Hallucinations, Suicidal Ideation, Homicidal Ideation - Patient Data Vitals - Most Recent: Last Vital Signs Temp 36.8 C 03/21/18 04:00 Pulse 94 03/21/18 08:25 Resp 17 03/21/18 04:00 BP 115/72 03/21/18 08:25 Pulse Ox 97 03/21/18 04:00 Vital Signs - 24 hr 03/20/18 03/20/18 03/20/18 09:15 09:30 09:51 Temperature [ Temporal] Pulse, Peripheral Pulse, 74 76 72 Peripheral [ Right Pulse Oximetry] Respiratory 17 18 17 Rate Blood Pressure Blood Pressure 169/107 H 147/93 H 174/99 H [Left Upper Arm ] Blood Pressure [Right Upper Arm] O2 Sat by Pulse 100 99 100 Oximetry 03/20/18 03/20/18 03/20/18 09:53 10:05 10:11 Temperature [ 37.0 C Temporal] Pulse, Peripheral Pulse, 75 74 Peripheral [ Right Pulse Oximetry] Respiratory 23 H 18 Rate Blood Pressure Blood Pressure 130/105 H 147/114 H [Left Upper Arm ] Blood Pressure [Right Upper Arm] O2 Sat by Pulse 99 99 100 Oximetry 03/20/18 03/20/18 03/20/18 10:44 12:26 12:59 Temperature [ Temporal] Pulse, Peripheral Pulse, 71 Peripheral [ Right Pulse Oximetry] Respiratory 16 Rate Blood Pressure 130/105 H 137/96 H Blood Pressure 137/94 H [Left Upper Arm ] Blood Pressure [Right Upper Arm] O2 Sat by Pulse 98 Oximetry 03/20/18 03/20/18 03/20/18 14:00 16:00 17:32 Temperature [ 37.0 C Temporal] Pulse, 76 Peripheral Pulse, 70 76 Peripheral [ Right Pulse Oximetry] Respiratory 16 16 Rate Blood Pressure 113/77 Blood Pressure 117/98 H 113/77 [Left Upper Arm ] Blood Pressure [Right Upper Arm] O2 Sat by Pulse 98 98 Oximetry 03/20/18 03/21/18 03/21/18 20:00 00:00 04:00 Temperature [ 36.9 C 36.9 C 36.8 C Temporal] Pulse, Peripheral Pulse, 80 87 Peripheral [ Right Pulse Oximetry] Respiratory 16 18 17 Rate Blood Pressure Blood Pressure 119/75 [Left Upper Arm ] Blood Pressure 112/76 112/80 [Right Upper Arm] O2 Sat by Pulse 96 98 97 Oximetry 03/21/18 03/21/18 08:24 08:25 Temperature [ Temporal] Pulse, 94 Peripheral Pulse, Peripheral [ Right Pulse Oximetry] Respiratory Rate Blood Pressure 115/72 115/72 Blood Pressure [Left Upper Arm ] Blood Pressure [Right Upper Arm] O2 Sat by Pulse Oximetry Weight - Most Recent: 91.898 kg I&O - Last 24 Hours: Intake & Output 03/20/18 03/21/18 03/21/18 22:59 06:59 14:59 Intake Total 795 436 Output Total 300 Balance 795 136 Imaging Impressions - Last 24 Hours: potline monitor shows normal sinus rhythm with heart rate in the 70s to 80s with no ectopy or arrhythmia. Lab Results Last 24 Hours: Laboratory Results - last 24 hr 03/20/18 03/20/18 03/21/18 Range/Units 12:45 18:39 07:00 WBC 19.0 H (4.0-10.2) K/uL RBC 4.86 (4.33-5.41) M/uL Hgb 15.7 (13.1-16.8) g/dL Hct 43.9 (39.0-49.0) % MCV 90.3 (84.0-98.0) fL MCH 32.3 (28.2-33.3) pg MCHC 35.8 (31.7-36.0) g/dL RDW 12.9 (11.2-14.1) % Plt Count 218 (150-350) K/uL Neut % (Auto) 84.4 H (45.0-80.0) % Lymph % (Auto) 8.1 L (10.0-50.0) % [place] % (Auto) 7.0 (2.0-14.0) % Eos % (Auto) 0.2 (0.0-5.0) % Baso % (Auto) 0.3 (0.0-2.0) % Neut # (Auto) 16.05 H (1.40-7.00) K/uL Lymph # (Auto) 1.54 (0.50-3.50) K/uL [place] # (Auto) 1.33 H (0.00-1.00) K/uL Eos # (Auto) 0.03 (0.00-0.50) K/uL Baso # (Auto) 0.05 (0.00-0.20) K/uL D-Dimer, Quantitative (0-400) ng/mL Sodium (136-145) mmol/L Potassium (3.5-5.1) mmol/L Chloride (98-107) mmol/L Carbon Dioxide (21.0-32.0) mmol/L BUN (7-18) mg/dL Creatinine (0.51-1.17) mg/dL Est Cr Clr Drug Dosing mL/min Estimated GFR (MDRD) mL/min Glucose (74-106) mg/dL Hemoglobin A1c (4.3-5.7) % Uric Acid (2.6-7.2) mg/dL Calcium (8.5-10.1) mg/dL Magnesium (1.8-2.4) mg/dL Total Bilirubin (0.2-1.0) mg/dL AST (15-37) U/L ALT (12-78) U/L Alkaline Phosphatase (46-116) IU/L Creatine Kinase 72 61 (26-308) U/L Creatine Kinase Index 1.8 2.0 (0.0-2.5) % CK-MB (CK-2) 1.30 1.20 (0.00-3.60) ng/mL Troponin I 0.000 0.000 (0.000-0.056) ng/mL NT-Pro-B Natriuret Pep (0-125) pg/mL Total Protein (6.4-8.2) g/dL Albumin (3.4-5.0) g/dL Triglycerides (30-150) mg/dL Cholesterol (100-200) mg/dL LDL Cholesterol, Calc (0-100) mg/dL HDL Cholesterol (40-60) mg/dL 03/21/18 03/21/18 03/21/18 Range/Units 07:00 07:00 07:00 WBC (4.0-10.2) K/uL RBC (4.33-5.41) M/uL Hgb (13.1-16.8) g/dL Hct (39.0-49.0) % MCV (84.0-98.0) fL MCH (28.2-33.3) pg MCHC (31.7-36.0) g/dL RDW (11.2-14.1) % Plt Count (150-350) K/uL Neut % (Auto) (45.0-80.0) % Lymph % (Auto) (10.0-50.0) % [place] % (Auto) (2.0-14.0) % Eos % (Auto) (0.0-5.0) % Baso % (Auto) (0.0-2.0) % Neut # (Auto) (1.40-7.00) K/uL Lymph # (Auto) (0.50-3.50) K/uL [place] # (Auto) (0.00-1.00) K/uL Eos # (Auto) (0.00-0.50) K/uL Baso # (Auto) (0.00-0.20) K/uL D-Dimer, Quantitative 520 H (0-400) ng/mL Sodium 138 (136-145) mmol/L Potassium 4.1 (3.5-5.1) mmol/L Chloride 102 (98-107) mmol/L Carbon Dioxide 24.0 (21.0-32.0) mmol/L BUN 17 (7-18) mg/dL Creatinine 0.78 (0.51-1.17) mg/dL Est Cr Clr Drug Dosing 98.65 mL/min Estimated GFR (MDRD) > 60 mL/min Glucose 166 H (74-106) mg/dL Hemoglobin A1c 5.5 (4.3-5.7) % Uric Acid 6.7 (2.6-7.2) mg/dL Calcium 8.9 (8.5-10.1) mg/dL Magnesium 2.2 (1.8-2.4) mg/dL Total Bilirubin 0.4 (0.2-1.0) mg/dL AST 22 (15-37) U/L ALT 43 (12-78) U/L Alkaline Phosphatase 88 (46-116) IU/L Creatine Kinase 53 (26-308) U/L Creatine Kinase Index 2.6 H (0.0-2.5) % CK-MB (CK-2) 1.40 (0.00-3.60) ng/mL Troponin I 0.022 (0.000-0.056) ng/mL NT-Pro-B Natriuret Pep 335 H (0-125) pg/mL Total Protein 6.8 (6.4-8.2) g/dL Albumin 3.3 L (3.4-5.0) g/dL Triglycerides 306 H (30-150) mg/dL Cholesterol 202 H (100-200) mg/dL LDL Cholesterol, Calc 83 (0-100) mg/dL HDL Cholesterol 58 (40-60) mg/dL Rafael Results Last 24 Hours: None Med Orders - Current: Current Medications Acetaminophen (Tylenol) 650 mg PO Q4H PRN PRN Reason: Pain Citalopram Hydrobromide (Celexa) 10 mg PO DAILY [facility] Diphenhydramine HCl (Benadryl) 50 mg PO Q4H PRN PRN Reason: Itching Last Admin: 03/20/18 21:10 Dose: 50 mg Enoxaparin Sodium (Lovenox) 90 mg SUBCUT Q12H [facility] Last Admin: 03/20/18 21:10 Dose: 90 mg Furosemide (Lasix) 40 mg IVPUSH DAILY [facility] Last Admin: 03/20/18 12:51 Dose: 40 mg Sodium Chloride (Normal Saline) 1,000 mls @ 30 mls/hr IV ASDIRECTED [facility] Last Admin: 03/20/18 13:12 Dose: 30 mls/hr Lisinopril (Prinivil) 20 mg PO BID [facility] Last Admin: 03/21/18 08:24 Dose: 20 mg Lorazepam (Ativan) 2 mg PO TID PRN PRN Reason: Anxiety Last Admin: 03/20/18 21:10 Dose: 2 mg Metoprolol Tartrate (Lopressor) 50 mg PO BID [facility] Last Admin: 03/21/18 08:25 Dose: 50 mg Miscellaneous Information (Remove Patch) 1 ea TRDERM DAILY [facility] Last Admin: 03/21/18 08:25 Dose: 1 ea Nicotine (Habitrol) 21 mg TRDERM DAILY [facility] Last Admin: 03/21/18 08:26 Dose: 21 mg Nitroglycerin (Nitrostat) 0.4 mg SL ONETIME STA Stop: 03/21/18 12:43 Last Admin: 03/20/18 12:59 Dose: 0.4 mg Potassium Chloride (Klor-Con M20) 20 meq PO DAILY [facility] Last Admin: 03/21/18 08:25 Dose: 20 meq Simvastatin (Zocor) 10 mg PO BEDTIME [facility] Sodium Chloride (Saline Flush) 10 ml FLUSH ASDIRECTED PRN PRN Reason: Keep Vein Open Last Admin: 03/20/18 09:12 Dose: 10 ml Sodium Chloride (Saline Flush) 10 ml FLUSH Q12HR PRN PRN Reason: Keep Vein Open Discontinued Medications Al Hydroxide/Mg Hydroxide (Gi Cocktail) 30 ml PO ONETIME ONE Stop: 03/20/18 09:26 Last Admin: 03/20/18 09:42 Dose: 30 ml Aspirin (Ecotrin) 325 mg PO ONETIME ONE Stop: 03/20/18 07:55 Last Admin: 03/20/18 08:32 Dose: Not Given Aspirin (Aspirin) Confirm Administered Dose 324 mg .ROUTE .STK-MED ONE Stop: 03/20/18 07:57 Last Admin: 03/20/18 08:07 Dose: 324 mg Diphenhydramine HCl (Benadryl) 50 mg IVPUSH ONETIME ONE Stop: 03/20/18 12:42 Last Admin: 03/20/18 12:51 Dose: 50 mg Enalaprilat (Vasotec Iv) 1.25 mg IVPUSH ONETIME ONE Stop: 03/20/18 08:20 Last Admin: 03/20/18 08:30 Dose: 1.25 mg Famotidine (Pepcid) 40 mg IVPUSH ONETIME ONE Stop: 03/20/18 09:04 Last Admin: 03/20/18 09:12 Dose: 40 mg Fentanyl (Sublimaze) 100 mcg IVPUSH ONETIME ONE Stop: 03/20/18 08:36 Last Admin: 03/20/18 08:39 Dose: 100 mcg Fentanyl (Sublimaze) 100 mcg IVPUSH ONETIME ONE Stop: 03/20/18 09:24 Last Admin: 03/20/18 09:27 Dose: 100 mcg Nitroglycerin/Dextrose (Nitroglycerin 25 Mg/D5w 250 Ml) 25 mg in 250 mls @ 6 mls/hr IV TITRATE NAVID Last Admin: 03/20/18 13:08 Dose: 10 mcg/min, 6 mls/hr Iopamidol (Isovue-370 (76%)) 100 ml IVPUSH ONETIME ONE Stop: 03/20/18 09:01 Last Admin: 03/20/18 08:55 Dose: 100 ml Labetalol HCl (Normodyne) 10 mg IVPUSH ONETIME ONE; Protocol Stop: 03/20/18 08:40 Last Admin: 03/20/18 08:44 Dose: 10 mg Labetalol HCl (Normodyne) 10 mg IVPUSH ONETIME ONE; Protocol Stop: 03/20/18 09:25 Last Admin: 03/20/18 09:28 Dose: 10 mg Methylprednisolone Sodium Succinate (Solu-Medrol) 125 mg IVPUSH ONETIME ONE Stop: 03/20/18 12:42 Last Admin: 03/20/18 12:51 Dose: 125 mg Metoprolol Tartrate (Lopressor) 2.5 mg IVPUSH ONETIME ONE Stop: 03/20/18 08:20 Last Admin: 03/20/18 08:27 Dose: 2.5 mg Metoprolol Tartrate (Lopressor) 25 mg PO ONETIME ONE Stop: 03/20/18 08:35 Last Admin: 03/20/18 08:37 Dose: 25 mg Morphine Sulfate (Morphine) 4 mg IVPUSH ONETIME ONE Stop: 03/20/18 07:57 Last Admin: 03/20/18 08:11 Dose: 4 mg Nitroglycerin (Nitrostat) 0.4 mg SL Q5M PRN PRN Reason: Chest Pain Ondansetron HCl (Zofran) 4 mg IVPUSH ONETIME ONE Stop: 03/20/18 08:35 Last Admin: 03/20/18 08:39 Dose: 4 mg Pantoprazole Sodium (Protonix Iv) 40 mg IVPUSH ONETIME ONE Stop: 03/20/18 09:26 Last Admin: 03/20/18 09:42 Dose: 40 mg Temazepam (Restoril) 15 mg PO BEDTIME PRN PRN Reason: Insomnia Ticagrelor (Brilinta) 180 mg PO ONETIME ONE Stop: 03/20/18 08:21 Last Admin: 03/20/18 08:23 Dose: 180 mg - Exam Quality Assessment: DVT Prophylaxis (Lovenox at cardiac dose). No: Supplemental Oxygen, Central Line/PICC, Urine Catheter, Skin Breakdown, Restraints General: Alert, Oriented, Cooperative, No Acute Distress HEENT: Pupils Equal, Pupils Reactive, EOMI, Mucous Membr. Moist/[place]. No: Scleral Icterus Neck: Supple, Trachea Midline, No JVD, No Thyromegaly, Carotid Bruit (Mild bilateral carotid bruits versus transmitted heart sounds). No: Lymphadenopathy Lungs: Clear to Auscultation, Normal Respiratory Effort. No: Rhonchi, Rub, Wheezing Cardiovascular: Regular Rate, Regular Rhythm, Murmurs (Stable 23/6 K[place] of the aortic valve with diastolic murmur not appreciated). No: Gallops, Rubs GI/Abdominal Exam: Normal Bowel Sounds, Soft, Non-Tender, No Organomegaly, No Distention, No Abnormal Bruit, No Mass, Other (Obese). No: Guarding (Male) Exam: Deferred Back Exam: Normal Inspection, Full Range of Motion. No: CVA Tenderness (L), CVA Tenderness (R), Muscle Spasm Extremities: Normal Inspection, Normal Range of Motion, Non-Tender, No Pedal Edema, Normal Capillary Refill. No: Nadira's Sign Peripheral Pulses: 2+: Radial (L), Radial (R), Dorsalis Pedis (L), Dorsalis Pedis (R) Skin: Warm, Dry, Intact, Ecchymosis (Minimal ecchymosis at Lovenox injection sites) Neurological: No New Focal Deficit, Other (No clinical orthostasis) Psy/Mental Status: Alert, Anxious (Moderate), Depressed (Borderline with good eye contact). No: Agitated, Suicidal Ideation, Homicidal Ideation, Hallucinations, Withdrawal Symptoms EKG INTERPRETATION EKG Date: 03/21/18 Time: 08:51 Rhythm: NSR Rate (Beats/Min): 84 [place]: Normal (Neutral cardiac axis) P-Wave: Enlarged (Mild diffuse biphasic P waves with poor R-wave progression in the anterior leads.) QRS: Normal (QRS interval of 0.09 seconds with mild repolarization changes.) ST-T: Normal (Reversal of T-wave inversion in lead V1 with stable nonspecific ST changes in lead aVL since second EKG on 03/20/18) QT: Normal FL/PQ Interval: 0.18 seconds representing resolution of borderline first-degree AV block yesterday Comparison: Change From Previous EKG (As above since 03/20/18) EKG Interpretation Comments: 1. No acute ischemic changes 2. First-degree AV block-resolved 3. Probable left atrial enlargement 4. Nonspecific repolarization changes. - Problem List & Annotations (1) Chest pain SNOMED Code(s): 94841935 Code(s): R07.9 - CHEST PAIN, UNSPECIFIED Status: Acute Priority: High Current Visit: Yes Onset Date: 03/20/18 Qualifiers: Chest pain type: precordial pain Qualified Code(s): R07.2 - Precordial pain Annotation/Comment:: Chest pain apparently has been very chronic in nature during the last few months, however significantly improved since initiation of IV nitroglycerin infusion. Various therapeutic options were discussed. Despite my strong recommendations of cardiology referral and transfer to [place] for possible heart catheterization secondary to persistent nonspecific chest pain, the patient still wishes to remain hospitalized in this facility at this time. He was extensively counseled on the risks of this decision. Serial cardiac enzymes 4 are negative for acute ME with no EKG changes. Artifactually elevated CK index this morning secondary to low baseline CK with mild change in troponin I this morning likely secondary to his CHF with still normal troponin I and no evidence of renal insufficiency despite IV Lasix therapy. Some anxiety component to patient's chronic chest discomfort, which is now back to his normal baseline versus somewhat improved, however patient does have a significant cardiac history, including thoracic aortic aneurysm repair and aortic valve valvuloplasty as per emergency room note. Patient will be transferred to acute care. He did tolerate nitroglycerin sublingual tablet and current nitroglycerin infusion well with exception of borderline pruritus yesterday evening as above. Note previous premedication yesterday with IV Benadryl and IV Solu-Medrol prior to initiation of nitroglycerin therapy. True allergy to nitroglycerin glycerin is questionable at this time. Since patient is back to his normal baseline we will discontinue nitroglycerin infusion this morning and continue to observe his chest pain and blood pressure, which is excellent this morning with increased medical therapy. Echocardiogram scheduled to be conducted later today. [facility] physician assumes care in the a.m., and the patient is aware of this switch in his care. Low threshold for cardiology referral and possible heart catheterization as above. Note initial evaluation by [facility] physician, Dr. Brewer, with verbal report given to me as I assumed patient care. No written documentation by [facility] physician prior to patient's transfer of his care to [place]. Chest pain protocol was initiated on patient's arrival to the emergency room. Note previous distant thoracic aortic aneurysm repair with negative CTA of the chest for PE and/or changes in his thoracic aneurysm repair, including dissection, etc.. His pain was somewhat difficult to control in the emergency room with multiple medications required as per emergency room note. Cardiology referral/transfer and/or outpatient Cardiolite stress test KARY advised as above. (2) Hypertension SNOMED Code(s): 75523111 Code(s): I10 - ESSENTIAL (PRIMARY) HYPERTENSION Status: Chronic Priority : High Current Visit: Yes Qualifiers: Hypertension type: essential hypertension Qualified Code(s): I10 - Essential (primary) hypertension Annotation/Comment:: His blood pressure is significantly improved with increased lisinopril and metoprolol therapy. IV nitroglycerin will be discontinued this morning as above. Consider additional Imdur therapy for cardiac prophylaxis and/or blood pressure control depending on his clinical course. Note borderline hypertensive crisis prior to admission to this facility with aggressive IV therapy required as per emergency room note. Note medication noncompliance in the last week prior to admission with medication compliance strongly encouraged. No recent illicit drug use, including methamphetamine, etc. Decreased caffeine intake discussed and strongly advised. (3) D-dimer, elevated SNOMED Code(s): 134806590 Code(s): R79.89 - OTHER SPECIFIED ABNORMAL FINDINGS OF BLOOD CHEMISTRY Status: Acute Priority: High Current Visit: Yes Onset Date: 03/20/18 Annotation/Comment:: Mild progression of d-dimer elevation this morning with negative CTA of the chest and venous Doppler studies of the lower extremities bilaterally yesterday. Continue high-dose subcutaneous Lovenox therapy for now with caution secondary to his peptic reflux disease. Repeat blood work in the a.m. No direct clinical evidence of DVT with continued negative Homans sign of the right leg. (4) Aortic valve stenosis SNOMED Code(s): 86291716 Code(s): I35.0 - NONRHEUMATIC AORTIC (VALVE) STENOSIS Status: Chronic Priority: Medium Current Visit: Yes Qualifiers: Cardiac valve disease etiology: nonrheumatic Qualified Code(s): I35.0 - Nonrheumatic aortic (valve) stenosis Annotation/Comment:: Note status post aortic valvuloplasty in 2007 as above. Echocardiogram later today as above with preliminary verbal report from electrophysiology technician ordered. Continue current beta [place] therapy. (5) CHF (congestive heart failure) SNOMED Code(s): 14490309 Code(s): I50.9 - HEART FAILURE, UNSPECIFIED Status: Acute Priority: Medium Current Visit: Yes Onset Date: 03/20/18 Qualifiers: Heart failure type: unspecified Heart failure chronicity: unspecified Qualified Code(s): I50.9 - Heart failure, unspecified Annotation/Comment:: Mild progressive BNP elevation and borderline CHF by chest x-ray on admission. Increase previously initiated low-dose IV Lasix therapy. Repeat chest x-ray in the a.m.. Echocardiogram later today as above. (6) COPD (chronic obstructive pulmonary disease) SNOMED Code(s): 59044030 Code(s): J44.9 - CHRONIC OBSTRUCTIVE PULMONARY DISEASE, UNSPECIFIED Status : Chronic Priority: Medium Current Visit: Yes Qualifiers: COPD type: emphysema Emphysema type: panlobular Qualified Code(s): J43.1 - Panlobular emphysema Annotation/Comment:: COPD by chest x-ray with history of tobacco use. Consider PFTs once his cardiac status has been determined. No recent fever or bronchitic type symptoms. Moderate leukocytosis today likely secondary to IV Solu-Medrol therapy yesterday. Note that CBC was redrawn with CBC elevation confirmed. UA with culture and sensitivity has been ordered. Initiate incentive spirometry. (7) Mixed anxiety depressive disorder SNOMED Code(s): 214704792 Code(s): F41.8 - OTHER SPECIFIED ANXIETY DISORDERS Status: Chronic Priority: Medium Current Visit: Yes Annotation/Comment:: Mild to moderate control based on clinical exam. Initiate Celexa this morning with close follow- up by regular providers after discharge. Note previous history of illicit drug use and moderate current alcohol intake. No evidence of DTs during this hospitalization. (8) Osteoarthritis SNOMED Code(s): 511271503 Code(s): M19.90 - UNSPECIFIED OSTEOARTHRITIS, UNSPECIFIED SITE Status: Chronic Priority: Medium Current Visit: Yes Qualifiers: Osteoarthritis location: multiple joints Osteoarthritis type: primary Qualified Code(s): M15.0 - Primary generalized (osteo)arthritis Annotation/Comment:: Stable by patient history (9) Peptic reflux disease SNOMED Code(s): 218431448 Code(s): K21.9 - GASTRO-ESOPHAGEAL REFLUX DISEASE WITHOUT ESOPHAGITIS Status: Chronic Priority: Medium Current Visit: Yes Annotation/Comment:: Aggressive treatment in the emergency room. Consider EGD depending on workup for his cardiac disease. H. pylori stool antigen and Hemoccult of stool ordered during this hospitalization with no bowel movement to this point. (10) Thoracic aortic aneurysm SNOMED Code(s): 782996298 Code(s): I71.2 - THORACIC AORTIC ANEURYSM, WITHOUT RUPTURE Status: Chronic Priority: High Current Visit: Yes Qualifiers: Presence of rupture: without rupture Qualified Code(s): I71.2 - Thoracic aortic aneurysm, without rupture Annotation/Comment:: No evidence of rupture by CTA of the chest as above. (11) Tobacco abuse counseling SNOMED Code(s): 827501541, 977179788, 216720865 Code(s): Z71.6 - TOBACCO ABUSE COUNSELING Status: Chronic Priority: Medium Current Visit: Yes Annotation/Comment:: Tobacco cessation information to be provided at discharge. Initiate Nicoderm patch during this hospitalization. (12) Hyperlipidemia SNOMED Code(s): 56505608 Code(s): E78.5 - HYPERLIPIDEMIA, UNSPECIFIED Status: Acute Priority: High Current Visit: Yes Onset Date: 03/21/18 Qualifiers: Hyperlipidemia type: mixed hyperlipidemia Qualified Code(s): E78.2 - Mixed hyperlipidemia Annotation/Comment:: Initiate Zocor therapy per the patient's request. Close follow-up by regular provider after discharge. Note moderate fasting hyperglycemia this morning with normal glycosylated hemoglobin with elevated blood sugars likely secondary to IV Solu-Medrol therapy yesterday as above. (13) Hypoalbuminemia SNOMED Code(s): 834628831 Code(s): E88.09 - OTH DISORDERS OF PLASMA-PROTEIN METABOLISM, NEC Status: Acute Priority: Medium Current Visit: Yes Onset Date: 03/21/18 Annotation/Comment:: Initiate high-protein Glucerna supplements as snacks. - Problem List Review Problem List Initiated/Reviewed/Updated: Yes - My Orders Last 24 Hours: My Active Orders 03/20/18 08:24 Chest PE [Ang Chest] [CT] Stat 03/20/18 10:00 Acetaminophen [Tylenol] 650 mg PO Q4H PRN Enoxaparin [Lovenox] 90 mg SUBCUT Q12H 03/20/18 10:10 Sodium Chloride 0.9% [Saline Flush] 10 ml FLUSH Q12HR PRN 03/20/18 10:11 Antiembolic Devices [RC] 08,20 Communication Order [RC] ROUTINE Communication, Vaccine [RC] PER UNIT ROUTINE Height and Weight [RC] DAILY Intake and Output Strict [RC] ASDIRECTED Oxygen Therapy [RC] 2300 Pulse Oximetry [RC] ASDIRECTED Up With Assistance [RC] ASDIRECTED VTE/DVT Education [RC] PER UNIT ROUTINE OCCULT BLOOD DIAGNOSTIC [OP] Stat Antiembolic Hose [OM.PC] Routine CHF Questionnaire [COMM] Routine DVT/VTE Prophylaxis Reflex [OM.PC] Routine GM Immunization Reflex [OM.PC] Click To Edit 03/20/18 10:15 H PYLORI STOOL ANTIGEN [MREF] ONETIME Furosemide [Lasix] 40 mg IVPUSH DAILY Potassium Chloride [Klor-Con M20] 20 meq PO DAILY 03/20/18 10:17 Venous Doppler Lwr Ext Bi [US] Urgent 03/20/18 10:19 Lisinopril [Prinivil] 20 mg PO BID 03/20/18 10:22 Resuscitation Status Routine 03/20/18 10:24 Up With Assistance [RC] ASDIRECTED 03/20/18 10:30 Nicotine [Habitrol] 21 mg TRDERM DAILY 03/20/18 10:54 LORazepam [Ativan] 2 mg PO TID PRN 03/20/18 12:41 EKG Documentation Completion [RC] ASDIRECTED 03/20/18 12:42 Nitroglycerin [Nitrostat] 0.4 mg SL ONETIME STA 03/20/18 12:45 Sodium Chloride 0.9% [Normal Saline] 1,000 ml IV ASDIRECTED 03/20/18 12:46 Communication Order [RC] ROUTINE 03/20/18 14:15 Vital Signs [RC] Q4HR 03/20/18 18:00 Metoprolol Tartrate [Lopressor] 50 mg PO BID 03/20/18 18:25 Cardiac Monitoring [RC] Q2HR 03/20/18 20:48 diphenhydrAMINE [Benadryl] 50 mg PO Q4H PRN 03/21/18 05:11 EKG Documentation Completion [RC] ASDIRECTED Echo Comp wo Cont [US] Urgent 03/21/18 08:00 Remove Patch 1 ea TRDERM DAILY 03/21/18 08:59 CULTURE URINE [RM] Routine URINALYSIS W/MICROSCOPIC [UA W/MICROSCOPIC] [URIN] Routine 03/21/18 09:00 Admission Status [Patient Status] [ADT] Routine 03/21/18 09:08 Citalopram [Celexa] 10 mg PO DAILY 03/21/18 11:00 Echo Comp wo Cont [US] Routine 03/21/18 12:00 Echo Comp wo Cont [US] Routine 03/21/18 20:00 Simvastatin [Zocor] 10 mg PO BEDTIME 03/21/18 Breakfast Fluid Restriction [DIET] 03/22/18 05:11 BASIC METABOLIC PANEL,BMP [CHEM] Routine CBC WITH AUTO DIFF [HEME] Routine CK W CKMB [CHEM] Routine D-DIMER QUANTITATIVE [COAG] Routine PRO B-TYPE NATRIUR PEPT,BNPPRO [CHEM] Routine TROPONIN I [CHEM] Routine - Assessment Assessment:: As above. - Plan Plan:: As above. Extensive precautions were given to the patient, who is in agreement with the treatment plan. The patient will require about 3-4 days of inpatient/ acute care secondary to multiple health problems as above. Possible hospital transfer tomorrow as above. He does have some [facility], however he does not wish to be transferred to that facility, which is certainly reasonable since further cardiology workup/heart catheterization is not available in that hospital. The patient does prefer [facility] in [place], if transfer is required.
[2018-03-21] MEDS: Enoxaparin 100 MG/1 ML Syringe SUBCUT SCH (10:14)
[2018-03-21] MEDS: Furosemide 40 MG/4 ML VIAL IVPUSH SCH (10:16)
[2018-03-21] MEDS: Sodium Chloride 0.9% 10 ML Syringe FLUSH PRN ×2 (10:17→18:46)
[2018-03-21] MEDS ORDERED: diphenhydrAMINE 50 MG/ML SDV IVPUSH ONE (16:00)
--- NOTE | 2018-03-21 16:37 | PCM.SN ---
- Free Text/Narrative Note: Telephone consultation earlier this afternoon with mechanical manufacturing technician concerning preliminary verbal report of today's echocardiogram indicating moderate aortic valve stenosis, however excellent ejection fraction of 50-70 percent. Subsequent telephone consultation at 15:[address] Mills, title i assistant at [facility], indicating actual severe aortic valve stenosis with recommendation of further evaluation, including heart catheterization, further assessment for probable aortic valve replacement, etc.. Various therapeutic options were discussed with the patient, who finally agreed to previously recommended transfer to [place] for further cardiac evaluation as per today's progress note. His chest pain has remained stable despite discontinuation of IV nitroglycerin infusion earlier this morning. Subsequent telephone consultation at 15:[address] Gasca, title i assistant at [facility], who does agree with the above treatment plan and transfer to their facility, although he is requesting that the patient be admitted through the hospitalist. He does recommend the nitroglycerin infusion be reinitiated at this time with planned heart catheterization tomorrow. Additional telephone consultation at 16:[address] Jones, hospitalist, who does agree to accept the patient for direct admission, with no further treatment recommendations given. Patient insists on dealing with financial issues [facility] prior to transfer to [place], and he did sign out AMA at 16:15 hours, although he did agree to return to this facility within 1 hour. He is well aware of risk of cardiac , etc. by leaving this facility. Unfortunately the patient did not return to this facility until 18:30 hours with no sequelae from delay of hospital transfer. IV nitroglycerin infusion was reinitiated shortly prior to transfer with premedication with 50 mg of IV Benadryl. Vital signs and physical exam are stable at time of transfer in comparison to earlier this morning as today's progress note. Extensive precautions were given to the patient, who is in agreement with the treatment plan. Ambulance transfer with primary care sales representative accompaniment with instructions given to increase nitroglycerin infusion, if patient's chronic chest pain worsens in route.. NOTE: Today's progress note and this addendum will serve as patient's discharge summary.
[2018-03-21] MEDS ORDERED: Furosemide 40 MG/4 ML VIAL IVPUSH SCH (18:00)
[2018-03-21] MEDS ORDERED: Potassium Chloride 20 MEQ Tab.ER PO SCH (18:00)
[2018-03-21] MEDS ORDERED: Famotidine 20 MG Tab PO SCH (18:00)
[2018-03-21] MEDS ORDERED: diphenhydrAMINE 50 MG/ML SDV ONE (18:44)
[2018-03-21] MEDS ORDERED: Simvastatin 10 MG Tab PO SCH (20:00)
== END 2018-03-21 19:00 | DRG 307 ==
LOC: LL.ED 07:25 → UNDOADMOB 09:56 → LL.MS 09:56 → OBSVTOIN 03-21 09:00
PROVIDERS: ADMIT Family Medicine; ATTEND Family Medicine
DX: I35.0 Nonrheumatic aortic (valve) stenosis (principal); K21.9 Gastro-esophageal reflux disease without esophagitis; F17.210 Nicotine dependence, cigarettes, uncomplicated; F41.8 Other specified anxiety disorders; I71.2 Thoracic aortic aneurysm, without rupture; M15.0 Primary generalized (osteo)arthritis; I44.0 Atrioventricular block, first degree; I11.0 Hypertensive heart disease with heart failure; I50.9 Heart failure, unspecified; R79.89 Other specified abnormal findings of blood chemistry; J44.9 Chronic obstructive pulmonary disease, unspecified; Z71.6 Tobacco abuse counseling; E88.09 Other disorders of plasma-protein metabolism, not elsewhere classified; Z88.8 Allergy status to other drugs, medicaments and biological substances; Z88.0 Allergy status to penicillin; Z86.718 Personal history of other venous thrombosis and embolism; H40.9 Unspecified glaucoma; H91.90 Unspecified hearing loss, unspecified ear; N40.0 Benign prostatic hyperplasia without lower urinary tract symptoms; E66.9 Obesity, unspecified; Z68.30 Body mass index [BMI] 30.0-30.9, adult; Z98.890 Other specified postprocedural states; Z91.14 Patient's other noncompliance with medication regimen
CPT/HCPCS: 36415; 71045; 71275; 80053; 80061; 81001; 82550; 82553; 83036; 83605; 83735; 83880; 84443; 84484; 84550; 85025; 85379; 85610; 85730; 87086; 93005; 93306; 93970; 96372; 96374; 96375; 96376; 99285; A9270-GY; C9113; G0378; J1200; J1650; J1940; J2270; J2405; J2930; J3010; J3490; J7030; J7050; Q9967